=== PATIENT | female | born 1980 | race Caucasian/White ===

== ENCOUNTER 2024-11-29 18:24 | Emergency (ER) | payer OTHER, SELFPAY ==
[2024-11-29 18:27] VITALS: BP 178/100
[2024-11-29 19:00] LABS: Urine Character Slightly Cloudy (Clear)
[2024-11-29 19:22] LABS: Urine Squamous Cell >30 /LPF (Few)
[2024-11-29 19:23] LABS: Urine Red Blood Cell 0-2 /HPF (0-2)
[2024-11-29] MEDS: TORADOL 15 MG IV (20:04)
[2024-11-29] MEDS: NSS 1000 IV (20:04)
[2024-11-29 20:11] LABS: Hematocrit 37.3 % (37.0-47.0); Hemoglobin 13.0 g/dL (12.0-16.0); Mean Corp Hgb Conc. 34.9 g/dL (33.0-37.0); Mean Corpuscular Volume 87.4 fL (81.0-99.0); Nucleated Red Blood Cells % 0 %; Platelet Count 247 10^3/uL (130-400); Red Cell Dist. Width 13.1 % (11.5-14.5)
[2024-11-29 20:25] LABS: HCG, Serum Qualitative Screen Negative
[2024-11-29 20:30] LABS: ALT (SGPT) 39 U/L (0-35); AST (SGOT) 32 U/L (14-36); Albumin 4.3 g/dl (3.5-5.0); Alkaline Phosphatase 63 U/L (38-126); Blood Urea Nitrogen 13 mg/dl (7-17); Calcium 10.1 mg/dl (8.4-10.2); Carbon Dioxide 24 mmol/L (22-30); Chloride 107 mmol/L (98-107); Glucose 126 mg/dl (70-99); Potassium 4.2 mmol/L (3.5-5.1); Sodium 137 mmol/L (135-145); Total Protein 7.1 g/dl (6.3-8.2); eGFR > 60.00
[2024-11-29 21:55] VITALS: BMI 46.3
[2024-11-29 21:59] VITALS: BP 166/106
--- NOTE | 2024-11-29 23:00 | ED.GENMED ---
History of Present Illness
General
Chief Complaint: Flank Pain
Source: patient
Time Seen by Provider: 11/29/24 21:49
Nursing documentation reviewed up to this point in time: agreed with
History of Present Illness
History of Present Illness:
43-year-old female presenting to the emergency department today with concerns of left-sided flank pain throughout the day today. Feels similar to previous kidney stones. Denies any nausea vomiting chest pain shortness of breath or any fevers.
Past History
Past History
ED Past Medical History: Other (Migraines)
ED Past Surgical History: Cholecystectomy
Social History
Tobacco: Non-smoker
Alcohol: None
Drug: None
Personal:
Living: with family
Employment: Employed
Family History
Family History: Other (Noncontributory)
Review of Systems
Review of Systems
Allergies reviewed?: Yes
All Other Systems: ROS reviewed and negative except as documented in HPI and ROS
Phy Exam
Physical Exam
Physical Exam:
GENERAL: Alert , in no apparent distress
EYE: pupils equal and reactive
NECK: Supple, no significant adenopathy.
ENT: o/p clr, mmm.
CARDIAC: Regular rate and rhythm .
LUNGS: Clear breath sounds bilaterally, no acute respiratory distress, no wheezes/rales/rhonchi
ABDOMEN: Soft, without focal tenderness, no r/g, no cvat
NEUROLOGICAL: Alert and oriented, no focal neuro deficits
SKIN: Warm and dry, skin intact.
MUSCULOSKELETAL: No edema, well perfused.
PSYCH: Normal and appropriate interaction.
Course
Orders/Labs/Results
Orders:
Orders
11/29/24 18:32
Add On- LAB Urgent
Tests Added?: hcg qual
CT Abd/pelvis Wo Iv Cont Urgent
Comment:
Reason For Exam: kidney stone
11/29/24 18:41
Urinalysis Reflex To Culture Urgent
Date Specimen was Collected: 11/29/24
Time Specimen was Collected: 18:29
Urine Microscopic Reflex Cult Urgent
Urine Culture Urgent
JOHNNIE Source: U
Specimen Description:
Date Specimen was Collected: 11/29/24
Time Specimen was Collected: 18:29
11/29/24 19:59
Ketorolac [Toradol] 15 mg .ROUTE .STK-MED ONE
11/29/24 20:01
Complete Blood Count/With Diff Urgent
Comprehensive Metabolic Panel Urgent
HCG, Serum Qualitative Screen Urgent
Ketorolac [Toradol] 15 mg IM NOW STA
11/29/24 20:04
0.9% Sodium Chloride 1000 ml [Nss] 1,000 ml IV BOLUS
Ketorolac [Toradol] 15 mg IV NOW STA
Abnormal Lab Results
11/29/24 11/29/24
18:41 20:01
WBC 13.9 H 10^3/uL
(4.8-10.8)
Abs Immat Gran (auto) 0.1 H 10^3/uL
(0-0.05)
Absolute Neuts (auto) 10.9 H 10^3/uL
(1.4-6.5)
Absolute Monos (auto) 0.7 H 10^3/uL
(0.1-0.6)
Neutrophils % 78.2 H %
(42.2-75.2)
Lymphocytes % 15.0 L %
(20.5-51.1)
Glucose 126 H mg/dl
(70-99)
ALT 39 H U/L
(0-35)
Urine Ketones 1+ A
(Negative)
Ur Occult Blood Reflex 2+ A
(Negative)
Urine Bacteria (Reflex) Moderate A
(Negative)
Urine Albumin (Reflex) 1+ A
(Neg - Trace)
11/29/24 20:01
11/29/24 20:01
Vital Signs
Initial and Last Documented VS:
Initial Vital Signs
Temp Pulse Resp BP Pulse Ox
98.5 F 91 19 178/100 100
11/29/24 18:27 11/29/24 18:27 11/29/24 18:27 11/29/24 18:27 11/29/24 18:27
Last Documented Vital Signs
Temp Pulse Resp BP Pulse Ox
98.0 F 104 20 166/106 100
11/29/24 21:59 11/29/24 21:59 11/29/24 21:59 11/29/24 21:59 11/29/24 21:59
MDM/Problems Addressed
MDM/Problems Addressed:
43-year-old female presenting to the emergency department today with concerns of left-sided flank pain. Found to have a 3 mm distal stone no signs of complications no signs of infection or renal dysfunction. Symptoms well-controlled here. Stable
for close outpatient follow-up. Return precautions given.
*Pulse Oximetry
SaO2: 100
Oxygen Mode of Delivery: Room air
Patient hypoxic: no (100)
*Critical Care Note
Total Time (30-74mins, 75-104mins- exclusive of procedures): Not Applicable
ED Attending Note
-
Portions of this chart may have been created with voice recognition software.� Occasional wrong word or��sound alike� substitutions may have occurred due to the inherent limitations of voice recognition software.
Discharge Plan
Departure
Patient Disposition: Home (Routine Discharge)
Date of Disposition: 11/29/24
Time of Disposition: 23:00
Patient with high blood pressure during this ER visit?: No
Condition: Good
Covid-19: Not Applicable
Discharge Problem:
Kidney stone
Instructions: Renal Colic (DC)
Prescriptions:
New
tamsulosin [Flomax] 0.4 mg capsule
0.4 mg PO HS 7 Days Qty: 7 0RF
oxycodone-acetaminophen [Endocet] 5-325 mg tablet
1 tab PO Q8H PRN (Reason: Pain) Qty: 7 0RF
No Action
colesevelam [WelChol] 625 MG tablet
1,875 mg PO BID
norethindrone ac-eth estradiol [Loestrin 05/05 ()] 1 EACH tablet
1 ea PO DAILY
liraglutide (weight loss) [Saxenda] 3 MG/0.5 ML pen injector
6 mg SQ DAILY
ondansetron 4 MG tablet,disintegrating
4 mg PO TIDPRN PRN (Reason: nausea/vomiting) Qty: 10 0RF
omeprazole magnesium [Prilosec OTC] 20 MG tablet,delayed release (DR/EC)
20 mg PO DAILY Qty: 20 0RF
ondansetron 4 MG tablet,disintegrating
4 mg PO TIDPRN PRN (Reason: nausea/vomiting) Qty: 12 0RF
oxycodone 5 MG tablet
5 mg PO Q6HPRN PRN (Reason: severe pain) Qty: 12 0RF
Referrals:
Tristan Anthony MD [Active, Urology] - Follow up in 5-7 days
Carole Flores DO [Family Provider]
Activity Restrictions/Additional Instructions:
You came to the emergency department today with concerns of flank pain. Found to have a kidney stone. Please follow-up closely with urology. Return for any worsening, new or concerning symptoms.
Interventions
Interventions:
*Risk Screen - Suicide Last Done: 11/29/24 18:27
*General Assessment Last Done: 11/29/24 18:27
*Neglect/Abuse Screening Last Done: 11/29/24 18:27
*ED- Fall Risk Assessment Last Done: 11/29/24 21:55
*ED COVID-19 Vaccine History Last Done: 11/29/24 21:55
KG-Yepcoh-Ubadmmqwdv Assessment Last Done: 11/29/24 21:56
ED-Female Genitourinary Assessment Last Done: 11/29/24 21:56
Discharge Date and Time
Print Language: KHMER
[2024-11-29] MEDS: FLOMAX 0.4 MG PO (23:26)
== END 2024-11-29 23:30 | disposition home or self-care (01) ==
LOC: EMR 18:24
PROVIDERS: Emergency Medicine; EMERGENCY PHYSICIAN Student in an Organized Health Care Education/Training Program; FAMILY PHYSICIAN Family Medicine
DX: N13.2 Hydronephrosis with renal and ureteral calculous obstruction (principal); Z90.49 Acquired absence of other specified parts of digestive tract
CPT/HCPCS: 96374; 96361; 99284; 74176; 80053; 81003; 81015; 84703; 85025; 87086